=== PATIENT | male | born 1995 | race Caucasian/White ===

== ENCOUNTER 2020-10-05 16:38 | Emergency (ER) | payer OTHER ==
[~2020-10-05] VITALS: Ht 167.6 cm; Wt 80.0 kg
[2020-10-05] MEDS ORDERED: IBUPROFEN 400 MG TABLET PO ONE (18:30)
[2020-10-05] MEDS ORDERED: ACETAMINOPHEN 325 MG TABLET PO ONE (18:30)
[2020-10-05 20:39] VITALS: BP 118/68
== END 2020-10-05 20:54 | disposition home or self-care (01) ==
LOC: EMS 16:41
DX: S42.412A Displaced simple supracondylar fracture without intercondylar fracture of left humerus, initial encounter for closed fracture (principal); Y04.0XXA Assault by unarmed brawl or fight, initial encounter; Y93.89 Activity, other specified; Y92.89 Other specified places as the place of occurrence of the external cause; Y99.8 Other external cause status
CPT/HCPCS: 29105; 99284